=== PATIENT | male | born 1940 | race Caucasian/White ===

== ENCOUNTER 2017-10-03 13:04 | Day surgery (SDC) | payer MEDICARE, BC ==
[~2017-10-03] VITALS: Ht 177.8 cm; Wt 109.5 kg
[~2017-10-03 13:04] MED LIST: ASPIR-LOW81 MG PO; ASPIRIN 32325 MG/TAB PO; ASPIRIN 81M81 MG/TA2 PO; ASPIRIN E.C. 8181 MG PO; CENTRUM1 TA1 PO; CLOPIDOGREL; HCTZ; HCTZ 25MG TAB25 MG PO; LIPITOR 40MG TA40 MG PO; LOPRESSOR 225 MG/TAB PO; LYRICA 50MG CAP50 MG PO; PERCOCET 325 MG1 TA2 PO; PERCOCET 5/321 UDTAB PO; PINDOLOL; PINDOLOL PO; PLAVIX 75MG TAB75 MG PO; PREDNISONE10 MG PO; VITAMIN C500 MG PO; VITAMIN E100 I3 PO; ZYLOPRIM 100MG100 MG PO; [UNRECOGNIZED DRUG - OTHER]
[2017-10-03] MEDS ORDERED: HCTZ 25MG TAB25 MG PO (13:24)
[2017-10-03] MEDS ORDERED: CIALIS5 MG PO (13:26)
[2017-10-03] MEDS ORDERED: TYLENOL 8 HR PO (13:27)
[2017-10-03] MEDS ORDERED: FISH OIL 500 M1 EAC1 PO (13:29)
[2017-10-03] MEDS ORDERED: BENTYL 20MG20 MG/TAB PO (13:30)
[2017-10-03] MEDS ORDERED: ANTIVERT 25MG25 MG PO (13:31)
[2017-10-03 13:55] VITALS: BP 136/79; PULSE 56; TEMP 97
[2017-10-03 14:40] VITALS: BP 136/79; PULSE 58; TEMP 97.5
[2017-10-03 15:00] VITALS: BP 141/79; PULSE 56
== END 2017-10-03 15:25 | disposition home or self-care (01) ==
LOC: SDCO 13:04
DX: Z12.11 Encounter for screening for malignant neoplasm of colon (principal); Z86.010 Personal history of colon polyps; D12.0 Benign neoplasm of cecum; D12.2 Benign neoplasm of ascending colon; D12.5 Benign neoplasm of sigmoid colon; K57.30 Diverticulosis of large intestine without perforation or abscess without bleeding; I10 Essential (primary) hypertension; Z79.82 Long term (current) use of aspirin; Z79.899 Other long term (current) drug therapy
CPT/HCPCS: J2250; J2405; J3010; J7030

== ENCOUNTER 2017-11-04 14:15 | Outpatient (RCR) | payer MEDICARE, BC ==
[~2017-11-04 14:15] MED LIST changes: +ANTIVERT 25MG25 MG PO; +BENTYL 20MG20 MG/TAB PO; +CIALIS5 MG PO; +FISH OIL 500 M1 EAC1 PO; +TYLENOL 8 HR PO
== END 2017-12-05 | disposition home or self-care (01) ==
LOC: WSPT
DX: M25.512 Pain in left shoulder (principal); M54.5 Low back pain; R42 Dizziness and giddiness; Z79.82 Long term (current) use of aspirin; Z79.899 Other long term (current) drug therapy
CPT/HCPCS: G8984-GP; G8985-GP

== ENCOUNTER 2018-05-12 10:52 | Outpatient (RCR) | payer MEDICARE, BC ==
[2018-05-14] MEDS ORDERED: CIALIS5 MG PO (09:05)
[2018-05-14] MEDS ORDERED: ASPIRIN 81M81 MG/TA2 PO (09:06)
[2018-05-14] MEDS ORDERED: ULTRAM 50MG TAB50 MG PO (09:16)
[2018-05-14] MEDS ORDERED: FLEXERIL 1010 MG/TAB PO (09:17)
== END 2018-08-10 ==
LOC: WSC → WSPT 11:00
DX: H81.10 Benign paroxysmal vertigo, unspecified ear (principal)

== ENCOUNTER 2018-05-14 08:48 | Emergency (ER) | payer MEDICARE, BC ==
[~2018-05-14] VITALS: Ht 177.8 cm; Wt 109.1 kg
[2018-05-14 09:05] LABS: BASO # 0.1 (0.0-0.2); BASO % 0.8 % (0.0-2.0); EOS # 0.3 (0.0-0.7); EOS % 4.6 % (0-4.0); GRAN # 3.2 (1.4-6.5); HEMATOCRIT 46.7 % (42.0-52.0); HEMOGLOBIN 16.6 g/dl (13.5-18.0); LYMPH # 2.1 (1.2-3.4); LYMPH % 32.3 % (20.0-51.0); MEAN CELL VOLUME 89 fl (80.0-100.0); MEAN CORPUSCULAR HEMOGLOBIN 32 pg (27.0-31.0); MEAN CORPUSCULAR HGB CONC 36 g/dl (33.0-37.0); MEAN PLATELET VOLUME 9.8 fl (7.4-10.4); MONO # 0.8 (0.1-0.6); MONO % 11.8 % (1.7-9.3); PLATELET COUNT 172 K/mm3 (130-400); RED BLOOD COUNT 5.25 M/mm3 (4.20-5.60); REDCELL DISTRIBUTION WIDTH-CV 13.1 % (11.5-14.5)
[2018-05-14] MEDS ORDERED: CIALIS5 MG PO (09:05)
[2018-05-14] MEDS ORDERED: ASPIRIN 81M81 MG/TA2 PO (09:06)
[2018-05-14 09:11] LABS: PROTHROMBIN TIME 11.5 SECONDS (9.7-12.8)
[2018-05-14 09:14] LABS: PARTIAL THROMBOPLASTIN TIME 33.4 SECONDS (26.0-37.0)
[2018-05-14 09:15] LABS: ALANINE AMINOTRANSFERASE 53 U/L (21-72); ALBUMIN 4.1 gm/dL (3.5-5.0); ALKALINE PHOSPHATASE 68 U/L (50-136); ANION GAP 11 mmol/L (7-16); AST,SGOT 50 U/L (15-37); BILIRUBIN,TOTAL 1.5 mg/dL (0.0-1.0); BLOOD UREA NITROGEN 12 mg/dL (9-20); CALCIUM 9.2 mg/dL (8.4-10.2); CARBON DIOXIDE 25 mmol/L (22-30); CHLORIDE 102 mmol/L (98-107); GLUCOSE 151 mg/dL (74-106); POTASSIUM 3.6 mmol/L (3.4-5.0); SODIUM 138 mmol/L (137-145)
[2018-05-14] MEDS ORDERED: ULTRAM 50MG TAB50 MG PO (09:16)
[2018-05-14] MEDS ORDERED: FLEXERIL 1010 MG/TAB PO (09:17)
[2018-05-14 09:26] LABS: TROPONIN-I < 0.012 ng/mL (0.000-0.035)
[2018-05-14 12:33] VITALS: BP 158/84; PULSE 53; TEMP 97.4
== END 2018-05-14 12:33 | disposition home or self-care (01) ==
LOC: COL.ER 08:48
PROVIDERS: Family Medicine
DX: R07.89 Other chest pain (principal); I25.10 Atherosclerotic heart disease of native coronary artery without angina pectoris; Z95.1 Presence of aortocoronary bypass graft; Z95.818 Presence of other cardiac implants and grafts

== ENCOUNTER 2018-09-11 12:45 | Outpatient (RCR) | payer MEDICARE, BC ==
[~2018-09-11 12:45] MED LIST changes: +FLEXERIL 1010 MG/TAB PO; +ULTRAM 50MG TAB50 MG PO
== END 2018-12-03 ==
LOC: WSPT
DX: M54.5 Low back pain (principal); M54.2 Cervicalgia; E66.9 Obesity, unspecified

== ENCOUNTER → 2019-03-20 | Outpatient (CLI) | payer MEDICARE, BC ==
[~2019-03-20] MED LIST changes: +GLUCOPHAGE1000 MG PO
[2019-03-20 11:05] LABS: ALBUMIN 4.4 gm/dL (3.5-5.0); BILIRUBIN,TOTAL 1.4 mg/dL (0.0-1.0); CALCIUM 9.6 mg/dL (8.4-10.2); CHOLESTEROL RISK RATIO 4.1; CREATININE, serum 0.7 (0.66-1.25); POTASSIUM 3.8 mmol/L (3.4-5.0); TOTAL PROTEIN 7.1 gm/dL (6.4-8.2)
[2019-03-20 11:34] LABS: THYROID STIMULATING HORMONE 3.67 uIU/mL (0.465-4.680)
== END ==
LOC: COL.LAB 09:53
PROVIDERS: Emergency Medicine
DX: Z13.220 Encounter for screening for lipoid disorders (principal); Z13.228 Encounter for screening for other metabolic disorders; E66.01 Morbid (severe) obesity due to excess calories; Z79.899 Other long term (current) drug therapy

== ENCOUNTER → 2019-03-21 | Outpatient (CLI) | payer MEDICARE, BC ==
[~2019-03-21] VITALS: Ht 175.3 cm; Wt 109.3 kg
[2019-03-21 10:08] VITALS: BP 130/74; PULSE 68
== END ==
LOC: LIGHT 09:42
DX: Z68.35 Body mass index [BMI] 35.0-35.9, adult (principal); E11.65 Type 2 diabetes mellitus with hyperglycemia; I10 Essential (primary) hypertension
CPT/HCPCS: G0463

== ENCOUNTER → 2019-04-11 | Outpatient (CLI) | payer MEDICARE, BC | LOC: LIGHT 14:01 | DX: Z02.89 Encounter for other administrative examinations (principal) ==

== ENCOUNTER → 2019-04-17 | Outpatient (CLI) | payer MEDICARE, BC ==
[~2019-04-17] VITALS: Ht 175.3 cm; Wt 106.8 kg
[2019-04-17 14:40] VITALS: BP 126/80; PULSE 82
== END ==
LOC: LIGHT 10:59
DX: Z68.34 Body mass index [BMI] 34.0-34.9, adult (principal); E88.81 Metabolic syndrome and other insulin resistance; E11.9 Type 2 diabetes mellitus without complications; I10 Essential (primary) hypertension
CPT/HCPCS: G0463

== ENCOUNTER 2020-05-29 03:41 | Observation (INO) | payer MEDICARE, BC ==
[~2020-05-29] VITALS: Ht 175.3 cm; Wt 109.2 kg
[2020-05-29] VITALS (15 sets, daily range): BP systolic 117–165; BP diastolic 51–131; PULSE 49–62; TEMP 97.5–98
[2020-05-29 10:09] LABS: BASO % 0.4 % (0.0-2.0); EOS # 0.3 (0.0-0.7); EOS % 3.3 % (0-4.0); GRAN # 4.6 (1.4-6.5); GRAN % 60.6 % (42.2-75.2); HEMATOCRIT 44.1 % (42.0-52.0); HEMOGLOBIN 15.1 g/dl (13.5-18.0); LYMPH # 1.9 (1.2-3.4); LYMPH % 24.2 % (20.0-51.0); MEAN CELL VOLUME 90 fl (80.0-100.0); MEAN CORPUSCULAR HEMOGLOBIN 31 pg (27.0-31.0); MEAN CORPUSCULAR HGB CONC 34 g/dl (33.0-37.0); MEAN PLATELET VOLUME 10.2 fl (7.4-10.4); MONO # 0.9 (0.1-0.6); MONO % 11.1 % (1.7-9.3); PLATELET COUNT 146 K/mm3 (130-400); RED BLOOD COUNT 4.89 M/mm3 (4.20-5.60); REDCELL DISTRIBUTION WIDTH-CV 13.5 % (11.5-14.5)
[2020-05-29 10:20] LABS: INR 1.1 (0.8-3.0); PROTHROMBIN TIME 11.8 SECONDS (9.7-12.8)
[2020-05-29 10:22] LABS: PARTIAL THROMBOPLASTIN TIME 29.8 SECONDS (26.0-37.0)
[2020-05-29 10:24] LABS: ALBUMIN 3.9 gm/dL (3.5-5.0); BILIRUBIN,TOTAL 1.5 mg/dL (0.0-1.0); CALCIUM 9.1 mg/dL (8.4-10.2); CREATININE, serum 0.79 (0.66-1.25); POTASSIUM 3.8 mmol/L (3.4-5.0); TOTAL PROTEIN 6.6 gm/dL (6.4-8.2)
--- NOTE | 2020-05-29 13:05 | NUR ---
Patient admitted from home by Dr. Bey for increased SOB w/ exertion and severe aortic stenosis. Cardiac Cath to be performed on 05/29. Upon initial assessment lungs were clear to auscilation, S1 and S2 sounds present, Bowel sounds present in all quadrants, pedial and radial pulses +2 bilaterally. No skin issues noted. Patient is A&O. at bedside. 20 gauge IV placed in right forearm. Fluids running as ordered. All scheduled medications given. Consent for heart cath signed and in the chart. Will continue to monitor. Call light within reach.
--- NOTE | 2020-05-29 19:18 | NUR ---
PT. had a heart cath done through his right femoral artery. Angio seal placed and patient will be on flat time until 1939. Post op vitals are being done as ordered. All vitals WNL. Tolerated procedure well. Patient does not C/O any pain or discomfort at this time. Fluids running in Right forearm site as ordered. Bedside report given to LIN Carroll. Call light within reach. Fall percations in place.
[2020-05-30] VITALS (7 sets, daily range): BP systolic 114–143; BP diastolic 45–67; PULSE 43–49; TEMP 97.3–98.2
--- NOTE | 2020-05-30 06:04 | NUR ---
NOTIFIED DR. ROMAN OF PATIENTS HEART RATE BEING IN THE LOW 40'S THROUGHOUT THE SHIFT. NO NEW ORDERS.
--- NOTE | 2020-05-30 06:55 | NUR ---
Patient lying in bed with eyes closed. Opens eyes when name called out. Alert and oriented x4. Denies pain. Heart rate bradycardic, 40's. Murmur noted. Patient has dressing to right groin area from cardiac cath yesterday that is CDI. Patient says that he wants to stay NPO at this time in case they do decide to place pacemaker today. Denies needs or concerns.
[2020-05-30 08:00] LABS: BASO % 0.5 % (0.0-2.0); EOS # 0.2 (0.0-0.7); EOS % 2.4 % (0-4.0); GRAN # 5.4 (1.4-6.5); GRAN % 64.8 % (42.2-75.2); HEMATOCRIT 42.9 % (42.0-52.0); HEMOGLOBIN 14.7 g/dl (13.5-18.0); LYMPH # 1.8 (1.2-3.4); LYMPH % 21.2 % (20.0-51.0); MEAN CELL VOLUME 91 fl (80.0-100.0); MEAN CORPUSCULAR HEMOGLOBIN 31 pg (27.0-31.0); MEAN CORPUSCULAR HGB CONC 34 g/dl (33.0-37.0); MEAN PLATELET VOLUME 10.8 fl (7.4-10.4); MONO # 0.9 (0.1-0.6); MONO % 10.6 % (1.7-9.3); PLATELET COUNT 139 K/mm3 (130-400); RED BLOOD COUNT 4.74 M/mm3 (4.20-5.60); REDCELL DISTRIBUTION WIDTH-CV 13.5 % (11.5-14.5)
[2020-05-30 08:19] LABS: CALCIUM 8.4 mg/dL (8.4-10.2); CREATININE, serum 0.67 (0.66-1.25); POTASSIUM 3.7 mmol/L (3.4-5.0)
--- NOTE | 2020-05-30 08:24 | NUR ---
Patient calls and has concern with his breathing. Says it started around midnight and he occasionally feels short of air that he has to pant about 6-8 times and then it seems better. SpO2 96%, lungs CTA. Patient says that it could be anxiety related but he is not certain. Explain that I would provide update to Dr. Bey. Patient denies additional needs at this time.
--- NOTE | 2020-05-30 09:03 | NUR ---
CRITICAL EKG REPORTED TO FABIOLA FAIRCHILD
--- NOTE | 2020-05-30 09:04 | NUR ---
SW met with the patient to discuss discharge plan. The patient lives in [place] with his , Toyin (ph#[phone]). He reports independence with ADLs and does not have any DME. The patient's PCP is Dr. Jesus Nielsen and he receives his medications from [facility] [place]. He reports no difficulties obtaining his meds. The patient does not have a DPOA-HC in EMR, but he states that he does have one completed and that it designates his . The patient plans to return home with his upon discharge. No additional needs at this time.
--- NOTE | 2020-05-30 09:25 | NUR ---
Receive call from tele that the patient heart rate has been steady 35-36 beats per minute. FABIOLA Velazquez, informed.
--- NOTE | 2020-05-30 10:10 | NUR ---
Patient sitting up in chair watching TV and talking with . Patient says that he is feeling okay at this time. Understands that we are still waiting on plan if pacemaker will be placed today or not. Denies additional needs at this time.
--- NOTE | 2020-05-30 12:06 | NUR ---
Sitting up in bed talking with and watching TV. Explain to the patient that I have not heard anything in regards to getting pacemaker placed today or not, patient says that they have not either. Patient says that he is doing okay at this time and denies additional needs or concerns.
--- NOTE | 2020-05-30 13:05 | NUR ---
FABIOLA Velazquez, informs josey Whatley RN, that patient may eat at this time and we will continue to monitor. Patient informed. Patient sitting up in bed talking with . Denies additional needs at this time.
--- NOTE | 2020-05-30 18:11 | NUR ---
Sitting up in chair on cell phone and watching TV. remains in room with the patient. Patient says that he is doing good at this time. Has not had any more of the breathing concerns as he previously did. Patient has ordered dinner and is awaiting for it to arrive. Denies additional needs or concerns at this time.
[2020-05-31 00:35] VITALS: BP 145/65; PULSE 72; TEMP 97.7
[2020-05-31 04:02] VITALS: BP 142/55; PULSE 71; TEMP 97.9
[2020-05-31 07:43] VITALS: BP 155/51; PULSE 47; TEMP 97.7
--- NOTE | 2020-05-31 09:05 | NUR ---
PT PLEASANT, AOX4, PT EAGER FOR DISCHARGE, APPEARS TO HAVE LABORED BREATHING AT REST, BASES DIMINIHED TO AUSCULTATION, PT IV SITE CDI W/O ERYTHEMA, PT ASSESSED, CALL LIGHT WITHIN REACH, PT ATE 100% BREAKFAST, NO OTHER NEEDS AT THIS TIME.
--- NOTE | 2020-05-31 11:33 | NUR ---
PT ESCORTED OUT VIA WHEELCHAIR BY SLIDE FASTENERS INSPECTOR, DISCHARGE EDUCATION PROVIDED TO PT, PT BELONGINGS GATHERERD AND TAKEN OUT WITH PT. NO OTHER NEEDS.
== END 2020-05-31 11:34 | disposition home or self-care (01) ==
LOC: MEDICAL 03:41
PROVIDERS: Nurse Practitioner; ADMIT Internal Medicine Interventional Cardiology
DX: I35.0 Nonrheumatic aortic (valve) stenosis (principal); R00.1 Bradycardia, unspecified; I10 Essential (primary) hypertension; R73.03 Prediabetes; I25.10 Atherosclerotic heart disease of native coronary artery without angina pectoris; I27.20 Pulmonary hypertension, unspecified; M06.9 Rheumatoid arthritis, unspecified; Z79.82 Long term (current) use of aspirin; Z79.899 Other long term (current) drug therapy; Z95.1 Presence of aortocoronary bypass graft; Z86.73 Personal history of transient ischemic attack (TIA), and cerebral infarction without residual deficits; Z79.4 Long term (current) use of insulin
CPT/HCPCS: C1760; C1769; C1894; G0378; G0379; J1644; J2250; J3010; Q9967

== ENCOUNTER 2020-10-15 15:31 | Outpatient (RCR) | payer MEDICARE, BC | END 2020-11-04 | disposition home or self-care (01) | LOC: COL.CR | DX: Z48.812 Encounter for surgical aftercare following surgery on the circulatory system (principal); Z95.2 Presence of prosthetic heart valve ==

== ENCOUNTER 2020-10-15 17:29 | Emergency (ER) | payer MEDICARE, BC ==
[~2020-10-15] VITALS: Ht 177.8 cm; Wt 105.9 kg
[2020-10-15 17:50] VITALS: TEMP 98
[2020-10-15 20:44] VITALS: BP 147/82; PULSE 62
== END 2020-10-15 20:45 | disposition home or self-care (01) ==
LOC: COL.ER 17:29
DX: S80.01XA Contusion of right knee, initial encounter (principal); I25.10 Atherosclerotic heart disease of native coronary artery without angina pectoris; Z79.82 Long term (current) use of aspirin; W19.XXXA Unspecified fall, initial encounter; Y93.A1 Activity, exercise machines primarily for cardiorespiratory conditioning

== ENCOUNTER 2021-01-30 13:00 | Outpatient (RCR) | payer MEDICARE, BC | END 2021-02-13 | disposition home or self-care (01) | LOC: PT.GENESIS | DX: M25.561 Pain in right knee (principal) ==

== ENCOUNTER 2021-03-13 13:00 | Outpatient (RCR) | payer MEDICARE, BC | END 2021-03-16 | disposition home or self-care (01) | LOC: PT.GENESIS | DX: M25.561 Pain in right knee (principal) ==

== ENCOUNTER → 2021-04-13 | Outpatient (RCR) | payer MEDICARE, BC | END | disposition home or self-care (01) | LOC: PT.GENESIS | DX: M25.561 Pain in right knee (principal); M54.50 Low back pain, unspecified; M25.511 Pain in right shoulder; M25.512 Pain in left shoulder ==

== ENCOUNTER → 2022-04-21 | Outpatient (CLI) | payer MEDICARE, BC | LOC: COL.RAD 15:24 | DX: M19.011 Primary osteoarthritis, right shoulder (principal); M19.012 Primary osteoarthritis, left shoulder ==

== ENCOUNTER 2022-05-12 13:00 | Outpatient (RCR) | payer MEDICARE, BC | END 2022-05-14 | disposition home or self-care (01) | LOC: PT.GENESIS | DX: M25.561 Pain in right knee (principal) ==

== ENCOUNTER 2022-10-13 13:00 | Outpatient (RCR) | payer MEDICARE, BC | END 2022-10-14 | disposition home or self-care (01) | LOC: PT.GENESIS | DX: M25.561 Pain in right knee (principal); M25.511 Pain in right shoulder; M48.061 Spinal stenosis, lumbar region without neurogenic claudication; M25.512 Pain in left shoulder ==

== ENCOUNTER 2022-11-10 13:00 | Outpatient (RCR) | payer MEDICARE, BC | END 2022-11-13 | disposition home or self-care (01) | LOC: PT.GENESIS | DX: M25.561 Pain in right knee (principal); M25.511 Pain in right shoulder; M25.512 Pain in left shoulder; M48.061 Spinal stenosis, lumbar region without neurogenic claudication ==

== ENCOUNTER → 2022-11-10 | Outpatient (CLI) | payer MEDICARE, BC | LOC: MHCPAIN 14:17 | DX: M54.50 Low back pain, unspecified (principal); M47.816 Spondylosis without myelopathy or radiculopathy, lumbar region; M48.061 Spinal stenosis, lumbar region without neurogenic claudication; M48.10 Ankylosing hyperostosis [Forestier], site unspecified; M19.011 Primary osteoarthritis, right shoulder; M19.012 Primary osteoarthritis, left shoulder | CPT/HCPCS: G0463 ==

== ENCOUNTER → 2022-11-22 | Outpatient (CLI) | payer MEDICARE, BC | LOC: MHCPAIN 09:51 | DX: M47.816 Spondylosis without myelopathy or radiculopathy, lumbar region (principal) | CPT/HCPCS: J0665 ==

== ENCOUNTER → 2023-03-10 | Outpatient (CLI) | payer MEDICARE, BC ==
[~2023-03-10] MED LIST changes: +Lidocaine PF 2% (20 MG/ML) 5 ML VIAL ONE; +Midazolam 2 MG/2 ML VIAL ONE; +fentaNYL 50 MCG/ML 2 ML VIAL ONE
== END ==
LOC: MHCPAIN 08:48
DX: M47.817 Spondylosis without myelopathy or radiculopathy, lumbosacral region (principal); M54.50 Low back pain, unspecified
CPT/HCPCS: J0665; J2250; J3010

== ENCOUNTER → 2023-04-05 | Outpatient (CLI) | payer MEDICARE, BC ==
[~2023-04-05] MED LIST changes: -Lidocaine PF 2% (20 MG/ML) 5 ML VIAL ONE; -Midazolam 2 MG/2 ML VIAL ONE; -fentaNYL 50 MCG/ML 2 ML VIAL ONE
== END ==
LOC: MHCPAIN 11:07
DX: M48.061 Spinal stenosis, lumbar region without neurogenic claudication (principal); M47.816 Spondylosis without myelopathy or radiculopathy, lumbar region; R26.89 Other abnormalities of gait and mobility
CPT/HCPCS: G0463

== ENCOUNTER → 2023-05-12 | Outpatient (CLI) | payer MEDICARE, BC ==
[~2023-05-12] MED LIST changes: +CENTRUM SILVER1 TA2 PO; +FISH OIL 1000MG1 CAP PO; +JARDIANCE25 PO; +LYRICA 75MG CAP75 MG PO; +Lidocaine PF 1% (10 MG/ML) 5 ML VIAL ONE; +NIACIN250 M2 PO; +NORVASC2.5 MG PO; +TOPROL XL100 MG PO; +Triamcinolone 40 MG/ML 1 ML VIAL ONE
== END ==
LOC: MHCPAIN 14:21
DX: M19.012 Primary osteoarthritis, left shoulder (principal)
CPT/HCPCS: J3301

== ENCOUNTER 2023-05-24 12:17 | Outpatient (CLI) | payer MEDICARE, BC ==
[~2023-05-24] VITALS: Ht 177.8 cm; Wt 99.6 kg
[~2023-05-24 12:17] MED LIST changes: -Lidocaine PF 1% (10 MG/ML) 5 ML VIAL ONE; -Triamcinolone 40 MG/ML 1 ML VIAL ONE
[2023-05-24 12:36] VITALS: BP 136/83; PULSE 62; TEMP 97.6
[2023-05-24] MEDS ORDERED: Iohexol 180 - 10 ML VIAL IV ONE (13:42)
[2023-05-24 13:45] VITALS: BP 147/91; PULSE 70
[2023-05-24 13:50] VITALS: BP 147/91; PULSE 74
[2023-05-24 14:00] VITALS: BP 121/81; PULSE 72
[2023-05-24 14:15] VITALS: BP 117/73; PULSE 68
[2023-05-24 14:30] VITALS: BP 115/81; PULSE 70
--- NOTE | 2023-05-24 14:43 | NUR ---
PT TOLERATED RECOVERY PERIOD WELL AND REMAINED FLAT ON HIS BACK FOR DURATION. PT'S BACK DRESSING REMAINED CLEAN, DRY AND INTACT. VS REMAINED WITHIN NORMAL LIMTIS. PT VERBALIZED UNDERSTANDING OF DISCHARGE INSTRUCTIONS.
== END 2023-05-24 14:46 | disposition home or self-care (01) ==
LOC: COL.RAD 12:17
DX: M47.816 Spondylosis without myelopathy or radiculopathy, lumbar region (principal); M47.817 Spondylosis without myelopathy or radiculopathy, lumbosacral region; M48.061 Spinal stenosis, lumbar region without neurogenic claudication
CPT/HCPCS: Q9965

== ENCOUNTER → 2023-06-30 | Outpatient (CLI) | payer MEDICARE, BC | LOC: MHCPAIN 14:00 | DX: M48.061 Spinal stenosis, lumbar region without neurogenic claudication (principal); M54.50 Low back pain, unspecified; M19.012 Primary osteoarthritis, left shoulder | CPT/HCPCS: G0463 ==

== ENCOUNTER → 2023-10-19 | Outpatient (CLI) | payer MEDICARE, BC ==
[~2023-10-19] MED LIST changes: +METAMUCIL0.52 G1 PO; +NORCO 325 MG-7.1 TAB PO; +TYLENOL 325MG325 MG PO; -TYLENOL 8 HR PO; +VASCEPA1 GM PO
== END ==
LOC: MHCPAIN 13:39
DX: M48.062 Spinal stenosis, lumbar region with neurogenic claudication (principal); M47.816 Spondylosis without myelopathy or radiculopathy, lumbar region; E11.9 Type 2 diabetes mellitus without complications; Z79.84 Long term (current) use of oral hypoglycemic drugs; I25.10 Atherosclerotic heart disease of native coronary artery without angina pectoris; Z95.5 Presence of coronary angioplasty implant and graft
CPT/HCPCS: G0463

== ENCOUNTER 2023-11-04 05:31 | Day surgery (SDC) | payer MEDICARE, BC ==
[2023-10-19 15:35] LABS: HEMATOCRIT 48.3 % (42.0-52.0); HEMOGLOBIN 16.8 g/dl (13.5-18.0); MEAN CELL VOLUME 89 fl (80.0-100.0); MEAN CORPUSCULAR HEMOGLOBIN 31 pg (27-31); MEAN CORPUSCULAR HGB CONC 35 g/dl (33.0-37.0); MEAN PLATELET VOLUME 9.6 fl (7.4-10.4); PLATELET COUNT 148 K/mm3 (130-400); RED BLOOD COUNT 5.45 M/mm3 (4.20-5.60); REDCELL DISTRIBUTION WIDTH-CV 13.6 % (11.5-14.5)
[2023-10-19 15:42] LABS: INR 1.1 (0.8-3.0); PROTHROMBIN TIME 11.4 SECONDS (9.7-12.8)
[2023-10-19 15:44] LABS: PARTIAL THROMBOPLASTIN TIME 33.2 SECONDS (26.0-37.0)
[~2023-11-04] VITALS: Ht 177.8 cm; Wt 101.8 kg
[2023-11-04 06:04] VITALS: BP 130/70; PULSE 63; TEMP 97.7
[2023-11-04] MEDS ORDERED: Meperidine 50 MG/ML 1 ML VIAL IV PRN (07:00)
[2023-11-04] MEDS ORDERED: Ondansetron 4 MG/2 ML VIAL IV PRN (07:00)
[2023-11-04] MEDS ORDERED: fentaNYL 50 MCG/ML 1 ML SYRINGE/VIAL [PACU/SDC ONLY] IV PRN (07:00)
[2023-11-04] MEDS ORDERED: HYDROmorphone 1 MG/1 ML SYRINGE [PACU/SDC ONLY] IV PRN (07:00)
[2023-11-04] MEDS ORDERED: hydrALAZINE 20 MG/ML 1 ML VIAL IV PRN (07:00)
[2023-11-04] MEDS ORDERED: Midazolam 2 MG/2 ML VIAL ONE (07:29)
[2023-11-04] MEDS ORDERED: fentaNYL 50 MCG/ML 2 ML VIAL ONE ×2 (07:29→08:38)
[2023-11-04] MEDS ORDERED: EPINEPHRINE IJ ONE (07:47)
[2023-11-04] MEDS ORDERED: LIDOCAINE 1% IJ ONE (07:47)
[2023-11-04 08:55] VITALS: BP 139/80; PULSE 66; TEMP 98.1
--- NOTE | 2023-11-04 08:55 | NUR ---
PATIENT RETURNS TO ROOM 7 PER CART FROM SURGERY ACCOMPANIED BY SEA Humphries CRNA AND TINA CEBALLOS. PATIENT AROUSES TO VERBAL STIMUI. IVF INFUSING. DRESSING CLEAN AND DRY ON THE LOWER BACK. DENIES PAIN OR NAUSEA. ALLOWED TO REST. CALL LIGHT IN REACH. SPOUSE IN THE ROOM.
[2023-11-04] MEDS ORDERED: Naloxone 0.4 MG/ML VIAL IV PRN (09:00)
[2023-11-04 09:10] VITALS: BP 114/73; PULSE 60
--- NOTE | 2023-11-04 09:10 | NUR ---
SATS 89% WHEN RESTING AND NOT TAKING DEEP BREATHS. OXYGEN PLACED ON AT 2L PER NASAL CANNULA. WILL CONTINUE TO MONITOR. SATS UP TO 94% AFTER OXYGEN PLACED ON.
[2023-11-04 09:25] VITALS: BP 111/60; PULSE 57
--- NOTE | 2023-11-04 09:25 | NUR ---
PATIENT AWAKE AND DRINKING WATER. DENIES PAIN OR NAUSEA. REMAINS ON OXYGEN AT 2L PER NC.
[2023-11-04 09:40] VITALS: BP 105/59; PULSE 59
--- NOTE | 2023-11-04 09:40 | NUR ---
OXYGEN REMOVED. SATS MAINTAINED AT 93%. EATING MUFFIN AND APPLESAUCE. TALKING WITH SPOUSE.
[2023-11-04] MEDS ORDERED: Acetaminophen 500 MG TAB PO SCH (09:57)
[2023-11-04 10:10] VITALS: BP 103/62; PULSE 60
--- NOTE | 2023-11-04 10:10 | NUR ---
TOLERATES SNACK AND CONTINUES TO DENY PAIN OR NAUSEA. CONVERSING WITH SPOUSE.
--- NOTE | 2023-11-04 10:30 | NUR ---
IV DISCONTINUED. SITTING ON EDGE OF CART AND IS ABLE TO DRESS SELF. SPOUSE REMAINS IN THE ROOM. DRESSING ON BACK WITH SCANT SHADOW OF DRAINAGE APPROXIMATELY SIZE ONE CENTIMETER IN DIAMETER. INSTRUCTED SPOUSE TO MONITOR AND CALL IF INCREASES OR BECOMES BRIGHT RED IN COLOR. APPEARS MORE SEROUS IN COLOR NOW. USES WALKER TO AMBULATE TO BATHROOM. GAIT STEADY.
--- NOTE | 2023-11-04 10:40 | NUR ---
DISMISSAL INSTRUCTIONS GIVEN AND PATIENT VOICES UNDERSTANDING OF THESE. SPOUSE ALSO PRESENT AND WILL OBSERVE THE DRESSING AND MONITOR FOR ANY SIGNS/SX OF INFECTIONS.
--- NOTE | 2023-11-04 10:47 | NUR ---
PATIENT TAKEN TO PRIVATE VEHICLE DRIVEN BY SPOUSE PER WHEELCHAIR AND ASSISTED INTO CAR BY THIS RN WITH INSTRUCTIONS IN HAND.
[2023-11-06] MEDS ORDERED: LR 1,000 ML IV SCH (06:15)
== END 2023-11-04 10:47 | disposition home or self-care (01) ==
LOC: SDCO 05:31
PROVIDERS: Anesthesiology Pain Medicine
DX: M48.062 Spinal stenosis, lumbar region with neurogenic claudication (principal); Z00.6 Encounter for examination for normal comparison and control in clinical research program
CPT/HCPCS: J0690; J2250; J3010; J7120

== ENCOUNTER → 2023-11-11 | Outpatient (CLI) | payer MEDICARE, BC | LOC: MHCPAIN 10:12 | DX: M48.062 Spinal stenosis, lumbar region with neurogenic claudication (principal) ==

== ENCOUNTER → 2023-12-07 | Outpatient (CLI) | payer MEDICARE, BC | LOC: MHCPAIN 11:21 | DX: M47.816 Spondylosis without myelopathy or radiculopathy, lumbar region (principal); M48.061 Spinal stenosis, lumbar region without neurogenic claudication; G89.29 Other chronic pain | CPT/HCPCS: G0463 ==